=== PATIENT | female | born 1960 | race Caucasian/White ===

== ENCOUNTER 2016-04-02 17:03 | Emergency (ER) | payer BC ==
[~2016-04-02] VITALS: Ht 175.3 cm; Wt 104.3 kg
[~2016-04-02 17:03] MED LIST: ATOR10TA60 PO; MELO-150 PO
[2016-04-02 17:21] VITALS: BP 157/75
[2016-04-02] MEDS ORDERED: AZIT250T6 PO (18:50)
[2016-04-02] MEDS ORDERED: DIPH25CA58 PO (18:50)
--- NOTE | 2016-04-02 18:50 | PHYS DOC ---
Past Medical History Past Medical History: Arthritis, High Cholesterol Past Surgical History: Cholecystectomy, Tonsillectomy Additional Information: 1 PACK/DAY Additional Information: 18 BEERS/WKND Drug Use: None Adult General Chief Complaint Chief Complaint: ALLERGIC REACTION HPI HPI 55-year-old female presenting to the emergency department today after having a generalized rash for 3 days after initiating ciprofloxacin. The rash she reports was red on the chest and arms and without alleviating factors. It is been improving since then. He denies associated shortness breath tongue swelling or difficulty breathing. She denies GI symptoms such as nausea vomiting or diarrhea. She denies abdominal pain. Onset 3 days. Location chest wall. Duration constant. Review of systems is negative for abdominal pain shortness of breath stridor nausea or vomiting. All other review of systems is negative unless otherwise noted in history of present illness. Review of Systems Review of Systems SEE ABOVE. Allergies Allergies Allergies Coded Allergies Type Severity Reaction Last Updated Verified Penicillins Allergy Intermediate Hives 08/24/15 Yes amoxicillin Allergy Intermediate Hives 08/24/15 Yes cefadroxil Allergy Intermediate Hives 08/24/15 Yes Physical Exam Physical Exam Constitutional: Well developed, well nourished, no acute distress, non-toxic appearance. HENT: Normocephalic, atraumatic, bilateral external ears normal, oropharynx moist, no oral exudates, nose normal. No stridor present. Eyes: PERRLA, EOMI, conjunctiva normal, no discharge. [] Neck: Normal range of motion, no tenderness, supple, no stridor. Cardiovascular:Heart rate regular rhythm, no murmur [] Lungs & Thorax: Bilateral breath sounds clear to auscultation . no wheezing present. Abdomen: Bowel sounds normal, soft, no tenderness, no masses, no pulsatile masses. [] Skin: Extremely subtle mild macular rash reportedly improving on the anterior chest wall and upper arms. Back: No tenderness, no CVA tenderness. [] Extremities: No tenderness, no cyanosis, no clubbing, ROM intact, no edema. [] Neurologic: Alert and oriented X 3, normal motor function, normal sensory function, no focal deficits noted. Psychologic: Affect normal, judgement normal, mood normal. [] Current Patient Data Vital Signs Vital Signs Date Time Temp Pulse Resp B/P Pulse Ox O2 Delivery O2 Flow Rate FiO2 04/02/16 17:21 98.0 84 20 157/75 100 Room Air 98.0 EKG EKG [] Radiology/Procedures Radiology/Procedures [] Course & Med Decision Making Course & Med Decision Making Pertinent Labs and Imaging studies reviewed. (See chart for details) [] 85-year-old female presenting with an allergic reaction. Reportedly she was being treated with a pneumonia with her ciprofloxacin on examination she had a mild macular rash otherwise vital signs were unremarkable. No evidence of airway involvement. Patient is provided with azithromycin as an antibiotic for her pneumonia recommended she stop all other antibiotics that she is taking currently. She was to continue the prednisone she had already been prescribed and I also added on Benadryl as needed for itchiness. Follow up with PCP in 2-3 days. Dragon Disclaimer Dragon Disclaimer This electronic medical record was generated, in whole or in part, using a voice recognition dictation system. Departure Departure Impression: Primary Impression: Allergic reaction Disposition: HOME, SELF-CARE Condition: STABLE Referrals: HERBER ROMERO MD (PCP) Patient Instructions: Drug Allergy Additional Instructions: Thank you for allowing us to participate in your care today. Followup with your primary care physician in 3 days if your symptoms do not improve. If you do not have a primary care provider you can ask for a list of our primary care providers. Return to the emergency department you have any new or concerning findings. This should be evaluated by the primary care physician and any necessary consulting services for continued management within a few days after discharge. Return to emergency room if you have any new or concerning symptoms including but not limited to fever, chills, nausea, vomiting, intractable pain, any new rashes, chest pain, shortness of air, uncontrolled bleeding, difficulty breathing, and/or vision loss. You may have been prescribed medication that can change in your level of thinking and ability to operate machinery. These medications include hydrocodone and Ativan. Also, Benadryl has been known to do this as well. Be sure to check with your pharmacist and ask if the medications you've prescribed can affect your level of consciousness. I recommend not operating heavy machinery or driving while on medication such as these. Scripts Azithromycin (Azithromycin Tablet)250 Mg Tablet1 Pkg PO UD #6 TAB Prov:LUPE JOSEPH MD 04/02/16 Diphenhydramine Hcl (Benadryl)25 Mg Capsule1 Cap PO PRN QHS PRN ITCHING #10 CAP Ref 0 Prov:LUPE JOSEPH MD 04/02/16 LUPE JOSEPH MD Apr 02, 2016 18:50
== END 2016-04-02 19:21 | disposition home or self-care (01) ==
LOC: ER 17:03
DX: T36.8X5A Adverse effect of other systemic antibiotics, initial encounter (principal); M19.90 Unspecified osteoarthritis, unspecified site; E78.00 Pure hypercholesterolemia, unspecified; Z88.0 Allergy status to penicillin; Z90.49 Acquired absence of other specified parts of digestive tract; F17.200 Nicotine dependence, unspecified, uncomplicated; Z88.1 Allergy status to other antibiotic agents; Z88.8 Allergy status to other drugs, medicaments and biological substances; Y92.89 Other specified places as the place of occurrence of the external cause
CPT/HCPCS: 99281; 99283

== ENCOUNTER → 2018-12-25 | Outpatient (CLI) | payer BC ==
[~2018-12-25] MED LIST changes: +AZIT250T6 PO; +DIPH25CA58 PO; -MELO-150 PO; +MELO15TA23 PO
--- NOTE | 2018-12-26 11:23 | KCIC ---
HAND RIGHT 3V History: Right hand pain. Technique: 3 views right hand. Comparison: None. Findings: Normal alignment. No fracture. Soft tissues unremarkable. 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 Impression: 1. Mild distal interphalangeal DJD. Electronically signed by: Antione Mims DO (12/26/2018 11:20 AM) [facility]
== END | disposition home or self-care (01) ==
LOC: KCIC 15:50
PROVIDERS: ATTEND Nurse Practitioner Gerontology
DX: M19.041 Primary osteoarthritis, right hand (principal)
CPT/HCPCS: 73130

== ENCOUNTER → 2020-09-27 | Outpatient (CLI) | payer BC ==
--- NOTE | 2020-09-27 10:30 | KCIC ---
EXAM: DUAL ENERGY X-RAY ABSORPTIOMETRY (DEXA). HISTORY: Postmenopausal screening. FINDINGS: The lowest measured T-score is -0.7 in the left hip, based on a bone mineral density of 0.8 56 g/cm^2. Refer to the worksheets for full detail. No comparison examinations are available. IMPRESSION: 1. Normal. Bone mineral density yields a T-score of -1.0 or greater. Fracture risk is low. 2. FRAX report: Not calculated. METHODOLOGY: Dual energy x-ray absorptiometry was performed to measure bone mineral density. The foll owing analysis is based on the 2019 Official Positions of the International Society for Clinical Dens itometry: Measurements of the hips and the average of L1-L4 are preferred. When the spine and/or hip cannot be feasibly measured or interpreted, or in the setting of hyperparathyroidism, distal radial bone minera l density may be measured. The lumbar spine T-score is based on the average bone mineral density of L1-L4. In the setting of art ifact or anatomic abnormality, some lumbar levels may be excluded, and the remaining levels used for calculation. A single lumbar level is not used for diagnosis, and if only a single level is available for assessment, another anatomic site will be used to assign a diagnosis. The hip T-score is based on the bone mineral density measurement of the femoral neck or total proxima l femur of either side, whichever is lowest. Bilateral mean values are not used for diagnosis. The forearm T-score is derived from 33% of the distal radius of the nondominant forearm. Electronically signed by: Akanksha Singleton MD (09/27/2020 10:28 AM) [id number]
== END ==
LOC: KCIC DEXA 08:38
PROVIDERS: ATTEND Family Medicine
DX: Z78.0 Asymptomatic menopausal state (principal)
CPT/HCPCS: 77080